=== PATIENT | female | born 1965 | race Caucasian/White ===

== ENCOUNTER → 2024-01-07 | Outpatient (CLI) | payer SELFPAY ==
[~2024-01-07] MED LIST: ALDACTONE 25MG25 M1 PO; LOSARTAN-HCTZ
== END ==
LOC: MKS.ESL.PT 15:00
DX: M25.551 Pain in right hip (principal)

== ENCOUNTER 2024-01-30 08:19 | Outpatient (RCR) | payer OTHER | END 2024-02-23 | disposition home or self-care (01) | LOC: MKS.ESL.PT | DX: M25.551 Pain in right hip (principal) ==

== ENCOUNTER → 2024-03-30 | Outpatient (CLI) | payer OTHER ==
[~2024-03-30] MED LIST changes: +Iohexol 300 - 10 ML VIAL IV ONE; +Triamcinolone 40 MG/ML 1 ML VIAL IJ ONE
== END ==
LOC: COL.RAD 09:42
DX: M25.551 Pain in right hip (principal)
CPT/HCPCS: J0665; J3301; Q9967

== ENCOUNTER 2024-07-23 06:18 | Inpatient (IN) | payer OTHER ==
[2024-07-23] VITALS (8 sets, daily range): BP systolic 118–175; BP diastolic 72–109; PULSE 76–91; TEMP 97.8–98.5
[~2024-07-23] VITALS: Ht 172.7 cm; Wt 89.4 kg
[~2024-07-23 06:18] MED LIST changes: -Iohexol 300 - 10 ML VIAL IV ONE; -Triamcinolone 40 MG/ML 1 ML VIAL IJ ONE
[2024-07-23] MEDS ORDERED: Ondansetron 4 MG/2 ML VIAL IV ONE (06:45)
[2024-07-23] MEDS ORDERED: NS 1,000 ML IV ONE (06:45)
[2024-07-23] MEDS ORDERED: Morphine 4 MG/ML VIAL IV ONE (07:00)
[2024-07-23 07:02] LABS: BASO % 0.3 % (0.0-2.0); EOS # 0.1 K/mm3 (0.0-0.7); EOS % 0.9 % (0.0-4.0); GRAN # 5.2 K/mm3 (1.4-6.5); GRAN % 73.8 % (42.2-75.2); HEMATOCRIT 45.3 % (37.0-47.0); HEMOGLOBIN 15.3 g/dl (12.5-16.0); LYMPH # 1.4 K/mm3 (1.2-3.4); LYMPH % 19.5 % (20.0-51.0); MEAN CELL VOLUME 86 fl (80.0-100.0); MEAN CORPUSCULAR HEMOGLOBIN 29 pg (27-31); MEAN CORPUSCULAR HGB CONC 34 g/dl (33.0-37.0); MEAN PLATELET VOLUME 10.1 fl (7.4-10.4); MONO # 0.4 K/mm3 (0.1-0.6); MONO % 5.4 % (1.7-9.3); PLATELET COUNT 289 K/mm3 (130-400); RED BLOOD COUNT 5.28 M/mm3 (4.10-5.30); REDCELL DISTRIBUTION WIDTH-CV 12.9 % (11.5-14.5)
[2024-07-23 07:09] LABS: PH 6.5 (5.0-8.5); URINE APPEARANCE CLOUDY (CLEAR/HAZY); URINE BLOOD NEGATIVE (NEGATIVE); URINE COLOR YELLOW (YELLOW); URINE GLUCOSE NEGATIVE (NEGATIVE); URINE KETONE NEGATIVE (NEGATIVE); URINE NITRATE POSITIVE (NEGATIVE); URINE PROTEIN(semi-quant) NEGATIVE (NEGATIVE)
[2024-07-23 07:33] LABS: ALBUMIN 4.2 g/dL (3.5-5.0); C-REACTIVE PROTEIN 0.59 mg/dL (0.00-0.50); CALCIUM 9.7 mg/dL (8.4-10.2); COLLECTION METHOD CLEAN CATCH; CREATININE, serum 0.82 mg/dL (0.57-1.11); POTASSIUM 3.7 mEq/L (3.5-4.5); TOTAL PROTEIN 7.4 g/dl (6.2-8.1); URINE BACTERIA MANY /hpf (NONE SEEN); URINE RBC 0-2 /hpf (0-2); URINE WBC 0-2 /hpf (0-2)
[2024-07-23 07:58] LABS: BILIRUBIN,TOTAL 2.8 mg/dL (0.2-1.2)
[2024-07-23] MEDS ORDERED: HYDROmorphone 0.5 MG/0.5 ML SYRINGE IV ONE (08:45)
[2024-07-23] MEDS ORDERED: HYZAAR 25 MG-101 TAB PO (08:52)
[2024-07-23] MEDS ORDERED: DESYREL 50MG50 MG PO (08:53)
[2024-07-23] MEDS ORDERED: CELEBREX 200MG200 MG PO (08:53)
[2024-07-23] MEDS ORDERED: FLEXERIL 1010 MG/TAB PO (08:54)
[2024-07-23] MEDS ORDERED: PROBIOTIC BLEN1 EACH PO (08:54)
[2024-07-23] MEDS ORDERED: CRANBERRY250 MG PO (08:54)
[2024-07-23] MEDS ORDERED: Ondansetron 4 MG/2 ML VIAL IV PRN (09:45)
[2024-07-23] MEDS ORDERED: LR 1,000 ML IV SCH (09:45)
[2024-07-23] MEDS ORDERED: Morphine 4 MG/ML VIAL IV PRN (12:30)
[2024-07-23] MEDS ORDERED: hydrALAZINE 20 MG/ML 1 ML VIAL IV PRN (12:45)
--- NOTE | 2024-07-23 13:20 | NUR ---
PATIENT BROUGHT TO THE FLOOR AT APPROXIMATELY 1320. PATIENT REPORTS PAIN 7/10, REQUESTS PAIN MEDICATION. LR RUNNING IN IV TO RIGHT AC AT 100ML/HOUR. INTAKE PERFORMED. ASSESSMENT COMPLETE. PATIENT RESTING IN BED, ORIENTED TO ROOM. CALL LIGHT IN REACH.
--- NOTE | 2024-07-23 13:50 | NUR ---
PATIENT C/O SEVERE ABD PAIN AND CRYING. PATIENT PACING AROUND IN ROOM. SHE CAN'T GET COMFORTABLE IN BED OR WALKING. GAVE PRN IV MORHPINE. NOTED ELEVATED B/P 175/109. GAVE PRN IV HYDRALAZINE. PATIENT NOW RESTING UP IN BED WITH CALL LIGHT IN REACH.
[2024-07-23] MEDS ORDERED: HYDROmorphone 0.5 MG/0.5 ML SYRINGE IV PRN (14:45)
[2024-07-23] MEDS ORDERED: LORazepam 1 MG TAB PO PRN (15:00)
[2024-07-23 15:56] LABS: INR 1.1 (0.8-3.0); PROTHROMBIN TIME 11.6 SECONDS (9.7-12.8)
[2024-07-23 15:58] LABS: PARTIAL THROMBOPLASTIN TIME 26.1 SECONDS (26.0-37.0)
[2024-07-23 16:09] LABS: TRICYCLIC ANTIDEPRESS URINE POSITIVE (NEGATIVE)
[2024-07-24] VITALS (18 sets, daily range): BP systolic 118–160; BP diastolic 64–92; PULSE 76–85; TEMP 97.5–98.7
--- NOTE | 2024-07-24 00:28 | NUR ---
patient lying in bed, alert and oriented x4. denies chest pain and shortness of breath. reports mild nausea and headache as well as abd pain rated 6/10, per request dilaudid given and scheduled meds. upon reassessment pt denies nausea and headache, pain in ABD rated 3/10. ambulating with steady gait. call light within reach. pt has no further needs, questions or concerns at this time.
[2024-07-24 05:55] LABS: BASO % 0.2 % (0.0-2.0); EOS # 0.1 K/mm3 (0.0-0.7); EOS % 1.1 % (0.0-4.0); GRAN # 4.6 K/mm3 (1.4-6.5); HEMATOCRIT 38.5 % (37.0-47.0); HEMOGLOBIN 13.4 g/dl (12.5-16.0); LYMPH # 1.5 K/mm3 (1.2-3.4); LYMPH % 22.6 % (20.0-51.0); MEAN CELL VOLUME 84 fl (80.0-100.0); MEAN CORPUSCULAR HEMOGLOBIN 29 pg (27-31); MEAN CORPUSCULAR HGB CONC 35 g/dl (33.0-37.0); MEAN PLATELET VOLUME 10.5 fl (7.4-10.4); MONO # 0.4 K/mm3 (0.1-0.6); MONO % 5.8 % (1.7-9.3); PLATELET COUNT 237 K/mm3 (130-400); RED BLOOD COUNT 4.56 M/mm3 (4.10-5.30); REDCELL DISTRIBUTION WIDTH-CV 12.9 % (11.5-14.5)
[2024-07-24 06:10] LABS: ALBUMIN 3.5 g/dL (3.5-5.0); BILIRUBIN,TOTAL 2.2 mg/dL (0.2-1.2); CALCIUM 8.8 mg/dL (8.4-10.2); CREATININE, serum 0.72 mg/dL (0.57-1.11); POTASSIUM 3.5 mEq/L (3.5-4.5)
[2024-07-24] MEDS ORDERED: Indocyanine Green 12.5 MG in Water For Injection,Sterile 2.5 ML IV ONE (08:15)
--- NOTE | 2024-07-24 08:40 | NUR ---
PT SITTING UP IN BED. DR. BURNETT ROUNDED SEE NEW ORDERS. PLAN ON SURGERY LATER TODAY. PT SCORING 0 CIWA. ICGREEN GIVEN ORDERED. CONSENT SIGNED ON CHART.
[2024-07-24] MEDS ORDERED: HYDROCHLOROTHIAZIDE 25 MG PO SCH (09:00)
[2024-07-24] MEDS ORDERED: LOSARTAN 100 MG PO SCH (09:00)
[2024-07-24] MEDS ORDERED: Multivitamin TAB PO SCH (09:00)
[2024-07-24] MEDS ORDERED: Folic Acid 1 MG TAB PO SCH (09:00)
--- NOTE | 2024-07-24 12:03 | NUR ---
D: [employer] Teacher stopped by room on rounds. A: Pt was resting and content. Pt has family in the area and seems well taken care of. Pt has no needs right now but appreciated the visit. P: [employer] Teacher informed pt that if she needed anything from the benzene still utility operator area to let her nurse know. [employer] Teacher will follow up as needed.
[2024-07-24] MEDS ORDERED: AMOXICILLIN 8751 TAB PO (12:38)
[2024-07-24] MEDS ORDERED: NORCO 325 MG-51 TAB PO (12:38)
--- NOTE | 2024-07-24 13:17 | NUR ---
PT SHOWERED INDEPENDENTLY PRIOR TO SURGERY TODAY. NOW RESTING IN BED AWAITING TRANSPORT TO SURGERY.
[2024-07-24] MEDS ORDERED: Succinylcholine PF 200 MG/10 ML SYRINGE IV ONE (13:43)
[2024-07-24] MEDS ORDERED: Lidocaine PF 2% (20 MG/ML) 5 ML VIAL ONE (13:44)
[2024-07-24] MEDS ORDERED: Rocuronium 50 MG/5 ML Multi-Dose VIAL ONE (13:45)
[2024-07-24] MEDS ORDERED: LR 1,000 ML IV SCH (13:45)
[2024-07-24] MEDS ORDERED: fentaNYL 50 MCG/ML 2 ML VIAL ONE ×2 (13:45→14:28)
[2024-07-24] MEDS ORDERED: Midazolam 2 MG/2 ML VIAL ONE (13:59)
--- NOTE | 2024-07-24 14:24 | NUR ---
PT TO SURGERY WITH HENRIK LAMBERT @4902
[2024-07-24] MEDS ORDERED: Ketorolac 30 MG/ML VIAL ONE (14:32)
[2024-07-24] MEDS ORDERED: Ondansetron 4 MG/2 ML VIAL ONE (14:32)
[2024-07-24] MEDS ORDERED: dexAMETHasone 10 MG/ML VIAL ONE (14:32)
[2024-07-24] MEDS ORDERED: NS 10 ML IV ONE (14:32)
[2024-07-24] MEDS ORDERED: Iohexol 350 - 100 ML VIAL BILE DUCT ONE (14:36)
[2024-07-24] MEDS ORDERED: NS 10 ML VIAL IJ ONE (14:36)
[2024-07-24] MEDS ORDERED: Topical Skin Adhesive 1 EACH (1 ML) TOP ONE (14:36)
[2024-07-24] MEDS ORDERED: HYDROmorphone 1 MG/1 ML SYRINGE [PACU/SDC ONLY] IV PRN (15:00)
[2024-07-24] MEDS ORDERED: fentaNYL 50 MCG/ML 1 ML SYRINGE/VIAL [PACU/SDC ONLY] IV PRN (15:00)
[2024-07-24] MEDS ORDERED: Ondansetron 4 MG/2 ML VIAL IV PRN (15:00)
[2024-07-24] MEDS ORDERED: hydrALAZINE 20 MG/ML 1 ML VIAL IV PRN (15:00)
--- NOTE | 2024-07-24 15:28 | NUR ---
[employer] Cutter met with patient to discuss discharge planning. Patient stated she lives in [place] with her friend, Abdirizak who is at bedside. Patient goes to [facility] for primary care and medications. Patient does not use any DME and is independent with ADLS. Patient stated her children, Shawanda (ph#[phone]) and James (ph#[phone]) are DPOA-HC. Discharge Plan: Home
[2024-07-24] MEDS ORDERED: ZOFRAN ODT4 MG PO (16:10)
--- NOTE | 2024-07-24 16:56 | NUR ---
PT TO ROOM 350 PER BED WITH REPORT FROM JEFF LAUREANO PACU @3023. PT IS A/O X5. LUNGS CTA, BOWEL SOUNDS HYPO. 5 LAP SITES DIRECTOR OF LEARNING CDI. SCDS PLACED BILATERALLY. IV TO RAC. VSS. PT DENIES NEEDS.
[2024-07-24] MEDS ORDERED: Amoxicillin/Clavulanate K+ 875/125 MG TAB PO SCH (17:00)
--- NOTE | 2024-07-24 17:54 | NUR ---
PT UP WITH SBA TO BR VOIDED AND RETURNED TO BED.
[2024-07-25] VITALS (9 sets, daily range): BP systolic 136–157; BP diastolic 74–94; PULSE 67–79; TEMP 98.2–98.6
[2024-07-25 06:26] LABS: BASO % 0.1 % (0.0-2.0); GRAN # 5.6 K/mm3 (1.4-6.5); HEMATOCRIT 38.8 % (37.0-47.0); HEMOGLOBIN 13.6 g/dl (12.5-16.0); LYMPH # 1.1 K/mm3 (1.2-3.4); LYMPH % 15.2 % (20.0-51.0); MEAN CELL VOLUME 85 fl (80.0-100.0); MEAN CORPUSCULAR HEMOGLOBIN 30 pg (27-31); MEAN CORPUSCULAR HGB CONC 35 g/dl (33.0-37.0); MEAN PLATELET VOLUME 10.7 fl (7.4-10.4); MONO # 0.5 K/mm3 (0.1-0.6); MONO % 6.4 % (1.7-9.3); PLATELET COUNT 252 K/mm3 (130-400); RED BLOOD COUNT 4.59 M/mm3 (4.10-5.30); REDCELL DISTRIBUTION WIDTH-CV 12.8 % (11.5-14.5)
[2024-07-25 06:47] LABS: ALBUMIN 3.4 g/dL (3.5-5.0); BILIRUBIN,TOTAL 1.1 mg/dL (0.2-1.2); CALCIUM 9.4 mg/dL (8.4-10.2); CREATININE, serum 0.69 mg/dL (0.57-1.11); POTASSIUM 3.7 mEq/L (3.5-4.5); TOTAL PROTEIN 6.4 g/dl (6.2-8.1)
--- NOTE | 2024-07-25 08:25 | NUR ---
pt a&ox4 sitting up in bed eating breakfast. meds given and assessment complete. pt rates pain a 4/10 in abdomen, kpad in place. pt not scoring on CIWA protocol. tolerating diet without nausea. scds to ble. x5 lap sites are cdi. fluids infusing into left ac IV. pt inquiring about discharge otherwise no needs at this time. call light in reach.
--- NOTE | 2024-07-25 10:39 | NUR ---
discharge instructions given to pt, all questions answered. pt waiting for daughter to pick her up.
--- NOTE | 2024-07-25 10:55 | NUR ---
pt escorted to personal vehicle by wheelchair.
== END 2024-07-25 10:55 | disposition home or self-care (01) | DRG 418 ==
LOC: COL.ER 06:18 → SURG 09:38
PROVIDERS: Emergency Medicine; ADMIT Internal Medicine
PROC: 0FT44ZZ Resection of Gallbladder, Percutaneous Endoscopic Approach (ICD-10-PCS; principal; 2024-07-23)
PROC: 8E0W4CZ Robotic Assisted Procedure of Trunk Region, Percutaneous Endoscopic Approach (ICD-10-PCS; 2024-07-23)
PROC: BF111ZZ Fluoroscopy of Biliary and Pancreatic Ducts using Low Osmolar Contrast (ICD-10-PCS; 2024-07-23)
DX: K85.10 Biliary acute pancreatitis without necrosis or infection (principal); K81.0 Acute cholecystitis; N39.0 Urinary tract infection, site not specified; I10 Essential (primary) hypertension; F10.90 Alcohol use, unspecified, uncomplicated
CPT/HCPCS: J0360; J0690; J1100; J1170; J1885; J1920; J2250; J2270; J2405; J2543; J2704; J2765; J3010; J3411; J7030; J7120; Q9967